=== PATIENT | female | born 1970 | race Caucasian/White ===

== ENCOUNTER 2020-04-08 06:49 | Outpatient (CLI) | payer OTHER, SELFPAY ==
--- NOTE | 2020-04-08 07:05 | MR_ITS ---
WS: [id number] MRI PITUITARY WITHOUT AND WITH GADOLINIUM ENHANCEMENT TECHNIQUE: Sagittal T1, T2 axial, T2 axial FLAIR, axial susceptibility weighted imaging, axial diffus ion weighted images, and coronal T2 images were obtained. Pre and post-T1 axial and post T1 coronal i mages. ADC and FSPGR images. High-resolution coronal T2 imaging. Post gadolinium imaging with attenti on to the pituitary. CLINICAL INFORMATION: PITUITARY MICROADENOMA COMPARISON: MRI September 07, 2018 FINDINGS: Again seen is the hypoenhancing lesion in the right aspect of the pituitary which is decreased in siz e today measuring 2.7 x 3.1 x 5.0 mm compared to 6.5 x 6.4 x 4.4 mm. Findings compatible with microad enoma. Normal optic chiasm and pituitary infundibulum. No evidence of suprasellar lesion. No evidence of restricted diffusion to suggest acute ischemia. Ventricular system and basal cisterns are patent. No suspicious intracranial signal abnormalities. Normal posterior fossa. Normal vascular flow voids at the skull base. No extra-axial fluid collections. Paranasal sinuses and mastoid air fernando ls are well aerated. Mild mucosal thickening in the ethmoid air cells. No hemosiderin on susceptibly weighted images. Temporal lobes and hippocampal formations are normal i n appearance. No abnormal intracranial enhancement. Dural venous sinuses are patent. MR/MR pituitary wo/w con* [id number] IMPRESSION: 1. Pituitary microadenoma right aspect of the pituitary has decreased in size since the prior examination today measuring 2.7 x 3.1 x 5.0 mm 2. No suprasellar lesion. Normal optic chiasm and pituitary infundibulum. 3. No other suspicious intracranial signal abnormalities. 4. No abnormal intracranial enhancement. 5. No other significant changes.
== END 2020-04-08 06:50 | disposition home or self-care (01) ==
LOC: RADSHAW 06:51
PROVIDERS: PCP Internal Medicine; Visit Provider Internal Medicine
DX: D35.2 Benign neoplasm of pituitary gland (principal)
CPT/HCPCS: 70553; A9579

== ENCOUNTER → 2020-04-30 11:34 | Outpatient (BNVA) | payer OTHER, SELFPAY | PROVIDERS: PCP Internal Medicine; Visit Provider Obstetrics & Gynecology | DX: D25.9 Leiomyoma of uterus, unspecified (principal) | CPT/HCPCS: 76830 ==

== ENCOUNTER → 2020-06-02 08:11 | Outpatient (BNVA) | payer OTHER, SELFPAY | PROVIDERS: PCP Internal Medicine; Visit Provider Specialist | DX: R55 Syncope and collapse (principal) | CPT/HCPCS: 95816 ==

== ENCOUNTER 2020-06-19 07:00 | Outpatient (CLI) | payer OTHER, SELFPAY ==
--- NOTE | 2020-06-19 07:05 | USCV_ITS ---
Kanika Lira Age: 49 Gender: F : 1970 Exam Date: 06/19/2020 07:26 Ordering Phys: Susie Schneider MD Technologist: David Rushing Exam Location: [facility] [place] Indication: NEAR SYNCOPE BP: 118 / 78 HR: 82 Rhythm: Sinus Technical Quality: Adequate MEASUREMENTS (Male / Female) Normal Values 2D ECHO LV Diastolic Diameter PLAX 4.0 cm 4.2 - 5.9 / 3.9 - 5.3 cm LV Systolic Diameter PLAX 2.8 cm IVS Diastolic Thickness 0.9 cm 0.6 - 1.0 / 0.6 - 0.9 cm IVS Systolic Thickness 1.0 cm LVPW Diastolic Thickness 0.8 cm 0.6 - 1.0 / 0.6 - 0.9 cm LVPW Systolic Thickness 1.1 cm LVOT Diameter 2.0 cm LV Ejection Fraction 2D Teich 57.3 % LV Ejection Fraction MOD 2C 62.7 % LV Ejection Fraction 2C AL 64.0 % LA Diameter 3.6 cm LA Width 4.6 cm LA Height 5.1 cm RA Width 3.6 cm RA Height 5.2 cm M-MODE LV Diastolic Diameter MM 4.8 cm 4.2 - 5.9 / 3.9 - 5.3 cm LV Systolic Diameter MM 3.4 cm LV Ejection Fraction MM Teich 56.9 % IVS Diastolic Thickness MM 1.1 cm 0.6 - 1.0 / 0.6 - 0.9 cm IVS Systolic Thickness MM 1.6 cm LVPW Diastolic Thickness MM 1.1 cm 0.6 - 1.0 / 0.6 - 0.9 cm LVPW Systolic Thickness MM 1.5 cm RV Diastolic Diameter MM 1.6 cm Aortic Annulus Diameter 3.5 cm LA Ao Ratio MM 1.3 MV E Point Septal Separation 1.1 cm DOPPLER AV Peak Velocity 127.0 cm/s LVOT Peak Velocity 112.0 cm/s AV Area Cont Eq vti 2.6 cm squared AV Area Cont Eq pk 2.8 cm squared MV Area PHT 3.5 cm squared Mitral E to A Ratio 0.8 MV E' Velocity 38.0 cm/s Mitral E to MV E' Ratio 9.8 Mitral E to LV E' Lateral Ratio 8.8 Mitral E to LV E' Septal Ratio 11.0 TR Peak Velocity 127.0 cm/s TR Peak Gradient 6.5 mmHg TV Peak E Velocity 85.0 cm/s Right Atrial Pressure 3.0 mmHg Pulmonary Artery Systolic Pressu 9.5 mmHg FINDINGS Left Ventricle Normal left ventricular size and systolic function, EF 66 %. No regional wall motion abnormalities. Right Ventricle The right ventricle is normal in size and function. Right Atrium The right atrium is normal in size. Left Atrium The left atrium is normal in size. Mitral Valve No gross abnormalities noted Aortic Valve No gross abnormalities noted Tricuspid Valve Not visualized well Pulmonic Valve Pulmonic valve not well visualized. Pericardium Normal pericardium without effusion. Aorta Normal ascending aorta dimension. CONCLUSIONS Normal left ventricular size and systolic function, EF 66 %. No regional wall motion abnormalities. Possibly normal chamber sizes There is no pericardial effusion. Compared to the previous study from 10/20/2018, there may not be a significant change Dr Joana Frances MD FACC (Electronically Signed) Final Date: 19 June 2020 17:11 S
== END 2020-06-19 07:01 | disposition home or self-care (01) ==
PROVIDERS: PCP Internal Medicine; Visit Provider Internal Medicine
DX: R55 Syncope and collapse (principal); D35.2 Benign neoplasm of pituitary gland
CPT/HCPCS: 93306

== ENCOUNTER → 2020-07-22 07:55 | Outpatient (BNVA) | payer OTHER, SELFPAY | PROVIDERS: PCP Internal Medicine; Visit Provider Specialist | DX: R55 Syncope and collapse (principal); F32.9 Major depressive disorder, single episode, unspecified | CPT/HCPCS: 99204 ==

== ENCOUNTER 2020-08-26 09:21 | Outpatient (CLI) | payer OTHER, SELFPAY ==
--- NOTE | 2020-08-26 09:24 | MM_ITS ---
WS: [id number] BILATERAL SCREENING DIGITAL MAMMOGRAM WITH CAD HISTORY: SCREENING COMPARISON: 07/05/2019, 11/30/2017 and 10/06/2016 Bilateral CC and MLO views submitted. Computer aided detection analyzed. Breast composition: There are scattered areas of fibroglandular density. No suspicious masses, microc alcifications or architectural distortion. MM/[place] [id number] IMPRESSION: BI-RADS: 1-Negative FOLLOW UP: 1 Year Follow-up
== END 2020-08-26 09:22 | disposition home or self-care (01) ==
LOC: RADSHAW 09:23
PROVIDERS: PCP Internal Medicine; Visit Provider Internal Medicine
DX: Z12.31 Encounter for screening mammogram for malignant neoplasm of breast (principal)
CPT/HCPCS: 77067

== ENCOUNTER 2020-12-25 07:48 | Outpatient (CLI) | payer OTHER, SELFPAY ==
--- NOTE | 2020-12-25 08:00 | MR_ITS ---
WS: [id number] MRI PITUITARY WITHOUT AND WITH GADOLINIUM ENHANCEMENT TECHNIQUE: Sagittal T1, T2 axial, T2 axial FLAIR, axial susceptibility weighted imaging, axial diffus ion weighted images, and coronal T2 images were obtained. Pre and post-T1 axial and post T1 coronal i mages. ADC and FSPGR images. High-resolution coronal T2 imaging. Post gadolinium imaging with attenti on to the pituitary. CLINICAL INFORMATION: PITUITARY MICROADENOMA COMPARISON: MRI September 07, 2018 and April 08, 2020 FINDINGS: Previously described hypoenhancing lesion in the right aspect of the pituitary has decrease d in size today and is difficult to visualize and measure. Motion degrades some images. Minimal resid ual signal abnormality in the right aspect of the pituitary. No evidence of progression. Normal optic chiasm and pituitary infundibulum. No evidence of suprasellar lesion. No evidence of restricted diffusion to suggest acute ischemia. Ventricular system and basal cisterns are patent. No suspicious intracranial signal abnormalities. Normal posterior fossa. Normal vascular flow voids at the skull base. No extra-axial fluid collections. No hemosiderin on susceptibly weighted images. Temporal lobes and hippocampal formations are normal i n appearance. No abnormal intracranial enhancement. Dural venous sinuses are patent. MR/MR pituitary wo/w con* [id number] IMPRESSION: 1. Previously described pituitary microadenoma appears decreased in size today and is difficult to visualize. Minimal residual microadenoma. Overall volume o f pituitary tissue has decreased. No evidence of progression. 2. No evidence of suprasellar lesion. Normal optic chiasm and pituitary infund ibulum. 3. No other suspicious intracranial signal abnormalities. 4. No abnormal gadolinium enhancement. 5. No other significant changes from previous.
[2020-12-25] MEDS: gadobenate dimeglumine 20 mL vial IV (09:13)
== END 2020-12-25 07:49 | disposition home or self-care (01) ==
PROVIDERS: PCP Internal Medicine; Visit Provider Internal Medicine
DX: D35.2 Benign neoplasm of pituitary gland (principal)
CPT/HCPCS: 70553; A9577

== ENCOUNTER → 2021-02-24 10:30 | Outpatient (BNVA) | payer OTHER, SELFPAY | PROVIDERS: PCP Internal Medicine; Visit Provider Obstetrics & Gynecology | DX: Z12.4 Encounter for screening for malignant neoplasm of cervix (principal); N95.1 Menopausal and female climacteric states | CPT/HCPCS: 88175 ==

== ENCOUNTER 2022-01-11 06:49 | Outpatient (CLI) | payer OTHER, SELFPAY ==
--- NOTE | 2022-01-11 07:04 | MR_ITS ---
WS: [id number] MRI BRAIN WITHOUT AND WITH CONTRAST, ATTENTION DIRECTED TO THE PITUITARY GLAND HISTORY: PITUITARY MICROADENOMA COMPARISON: 12/25/2020 and 04/08/2020. TECHNIQUE: Diffusion-weighted imaging, axial T2 sequence, and postcontrast images in 3 planes are per formed. High-resolution coronal and sagittal imaging performed through the pituitary region with and without intravenous gadolinium. Sagittal and axial T1 fat sat sequences post-MultiHance 20 cc IV. Diffusion-weighted images are normal. No evidence for acute infarct. No hemorrhage. Very minimal T2 a nd FLAIR signal hyperintensity in the subcortical white matter of the RIGHT frontal lobe is stable. N o hemorrhage. No midline shift. No prior infarct. No inferior displacement of the cerebellar tonsils. High-resolution imaging through the pituitary gland is essentially normal. The previously described p ituitary microadenoma is minimally suspected. Very slight prominence of the RIGHT side of the pituita ry gland. No hypoenhancing lesion confirmed with certainty. Similar findings were noted on the prior MRI from 12/25/2020. This may have been treated successfully with medication. The optic chiasm and the pituitary infundibulum are normal with no displacement. Normal enhancement throughout the brain. 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 No abnormality at the cerebellopontine angle. Normal enhancement. Normal flow voids . Dural venous sinuses are patent and normal. Very minimal mucoperiosteal thickening in the ethmoid air cells. Normal mastoid air cells. No calvari al abnormality. Orbits and globes are negative. MR/MR pituitary wo/w con* [id number] IMPRESSION: 1. Previously described pituitary microadenoma is very difficult to visualize as also described on 12/25/2020. No recurrence or increase in size. 2. No enhancing masses.
[2022-01-11] MEDS: gadobenate dimeglumine 20 mL vial IV (08:16)
== END 2022-01-11 06:50 | disposition home or self-care (01) ==
LOC: RAD 06:49
PROVIDERS: PCP Internal Medicine; Visit Provider Internal Medicine
DX: D49.7 Neoplasm of unspecified behavior of endocrine glands and other parts of nervous system (principal)
CPT/HCPCS: 70553

== ENCOUNTER 2022-02-03 07:08 | Outpatient (CLI) | payer OTHER, SELFPAY ==
--- NOTE | 2022-02-03 07:21 | MM_ITS ---
WS: [id number] VIEWS: MLO and CC views both breasts. 3D digital tomosynthesis is also included in this exam. Comparison made with prior exam of 09/05/2015, 10/06/2016, 11/30/2017, 07/07/2019, 08/26/2020. Findings: There was no sign of mass, architectural distortion or suspicious calcification in either breast. Sc attered fibroglandular densities MM/[place] [id number] Impression: BI-RADS: 2-Benign FOLLOW-UP: 1 Year Follow-up This mammogram was also analyzed by the Computer Aided Detection System R2 Imag e [employer].
== END 2022-02-03 07:09 | disposition home or self-care (01) ==
LOC: RAD 07:12
PROVIDERS: PCP Internal Medicine; Visit Provider Internal Medicine
DX: Z12.31 Encounter for screening mammogram for malignant neoplasm of breast (principal)
CPT/HCPCS: 77063; 77067

== ENCOUNTER 2023-05-04 08:01 | Outpatient (CLI) | payer BC, SELFPAY ==
--- NOTE | 2023-05-04 08:14 | MR_ITS ---
WS: [id number] MRI BRAIN WITHOUT AND WITH CONTRAST, ATTENTION DIRECTED TO THE PITUITARY GLAND HISTORY: PITUITARY MICROADENOMA COMPARISON: None available. TECHNIQUE: Diffusion-weighted imaging, axial T2 sequence, and postcontrast images in 3 planes are per formed. High-resolution coronal and sagittal imaging performed through the pituitary region with and without intravenous gadolinium. MultiHance 20 mL IV. Again noted is hypoenhancing lesion in the RIGHT aspect of the pituitary which is very difficult to v isualize. Mass measures approximately 4 x 4 x 3 mm. Continued to decrease in size. Pituitary microade noma was also very difficult to visualize on the most recent study. Over the several past examination s there has been no increase in size. No encasement of the cavernous carotid arteries. There is no ma ss effect upon the cavernous carotid artery. No displacement of the optic chiasm or the pituitary inf undibulum. Diffusion weighted imaging is normal. No significant small vessel ischemic disease and no atrophy. Ve ntricles are normal size. No hemorrhage or hemosiderin. No inferior displacement of the cerebellar to nsils. Normal flow voids. Posterior fossa is normal. No significant sinus disease. Mastoid air cells are negative. IMPRESSION: 1. RIGHT pituitary microadenoma is identified and very poorly visualized as on the most recent studie s. Residual microadenoma measures approximately 4 x 4 x 3 mm. No mass effect upon the carotid artery or the optic chiasm. No enlargement. 2. No significant atrophy or prior infarct.
[2023-05-04] MEDS: gadobenate dimeglumine 20 mL vial IV (11:40)
== END 2023-05-04 08:02 | disposition home or self-care (01) ==
PROVIDERS: PCP Internal Medicine; Visit Provider Internal Medicine
DX: D35.2 Benign neoplasm of pituitary gland (principal)
CPT/HCPCS: 70553; A9577

== ENCOUNTER 2023-06-22 07:34 | Outpatient (CLI) | payer BC, SELFPAY ==
--- NOTE | 2023-06-22 07:49 | MM_ITS ---
WS: [id number] BILATERAL SCREENING DIGITAL TOMOSYNTHESIS MAMMOGRAM WITH CAD HISTORY: SCREENING COMPARISON: 02/03/2022 and 08/26/2020 Bilateral CC and MLO views with tomosynthesis and synthetic mammography submitted. Computer aided det ection analyzed. Breast composition: There are scattered areas of fibroglandular density. No suspicious masses, microc alcifications or architectural distortion. Stable asymmetries in each breast. There is a very tiny as ymmetry in the posterior RIGHT breast towards the chest wall which has been present on multiple prior studies. IMPRESSION: MM/[place] [id number] BI-RADS: 2-Benign FOLLOW UP: 1 Year Follow-up
== END 2023-06-22 07:35 | disposition home or self-care (01) ==
LOC: RAD 07:34
PROVIDERS: PCP Internal Medicine; Visit Provider Internal Medicine
DX: Z12.31 Encounter for screening mammogram for malignant neoplasm of breast (principal)
CPT/HCPCS: 77063; 77067

== ENCOUNTER 2024-03-05 12:25 | Outpatient (CLI) | payer OTHER, SELFPAY ==
--- NOTE | 2024-03-05 12:39 | XR_ITS ---
WS: [id number] Cervical spine, 7 views including both obliques and lateral views in flexion, extension and neutral p osition, 03/05/2024 Clinical Data: CERVICALGIA Comparison: None. Findings: No compression fractures are seen. The disc heights are normal. There is no prevertebral so ft tissue swelling. The odontoid is unremarkable. The oblique images show no neural foraminal encroac hment. On flexion and extension there is no limitation of motion or subluxation. The soft tissues of the neck and the lung apices are normal. XR/XR cervical spine min 6V [id number] Impression: 1. Negative cervical spine. 2. Negative oblique images. 3. Negative for limitation of motion or subluxation on flexion or extension.
--- NOTE | 2024-03-05 12:39 | XR_ITS ---
WS: [id number] Left shoulder, 3 views, 03/05/2024 Clinical Data: PAIN IN L SHOULDER Comparison: None. Findings: No fractures or dislocations are seen. There is a large calcification overlying the greater tuberosit y. The AC joint is normal. The adjacent left clavicle, left scapula and ribs are normal. The soft tis sues are unremarkable. XR/XR shoulder LT min 2V* [id number] Impression: Probable left shoulder calcific bursitis and/or tendinitis.
== END 2024-03-05 12:26 | disposition home or self-care (01) ==
PROVIDERS: PCP Internal Medicine; Visit Provider Internal Medicine
DX: M54.2 Cervicalgia (principal); M25.512 Pain in left shoulder
CPT/HCPCS: 72052; 73030

== ENCOUNTER 2024-03-19 11:55 | Outpatient (RCR) | payer OTHER, SELFPAY | END 2024-03-28 23:59 | disposition home or self-care (01) | LOC: SPT 11:55 | PROVIDERS: PCP Internal Medicine; Visit Provider Internal Medicine | DX: M54.2 Cervicalgia (principal) | CPT/HCPCS: 97161 ==

== ENCOUNTER 2025-02-15 07:47 | Outpatient (CLI) | payer OTHER, SELFPAY ==
--- NOTE | 2025-02-15 08:00 | US_ITS ---
WS: [id number] RIGHT UPPER QUADRANT ULTRASOUND HISTORY: EPIGASTRIC ABDOMINAL PAIN COMPARISON: None available. Liver: 16.7 cm in length. Normal size liver. Coarse echotexture and hepatic steatosis. The entire liver is poorly visualized due to body habitus. No intrahepatic duct dilatation. Portal Vein: Normal hepatopetal flow with monophasic waveform. Gallbladder: Normally distended gallbladder with no stones or wall thickening. CBD: 0.3 cm Pancreas: Not visualized. Right kidney: 10.0 cm in length. Normal size and echogenicity. No hydronephrosis or mass. Aorta and IVC: Unremarkable abdominal aorta and IVC. No ascites. US/US abdomen limited [id number] IMPRESSION: 1. Normal gallbladder. 2. Mild hepatic steatosis. No intrahepatic duct dilatation.
== END 2025-02-15 07:48 | disposition home or self-care (01) ==
LOC: RAD 07:50
PROVIDERS: PCP Internal Medicine; Visit Provider Internal Medicine
DX: K76.0 Fatty (change of) liver, not elsewhere classified (principal); R10.13 Epigastric pain
CPT/HCPCS: 76705

== ENCOUNTER 2025-03-13 07:57 | Outpatient (CLI) | payer OTHER, SELFPAY ==
--- NOTE | 2025-03-13 08:15 | MM_ITS ---
WS: [id number] BILATERAL SCREENING DIGITAL TOMOSYNTHESIS MAMMOGRAM WITH CAD HISTORY: SCREENING COMPARISON: 06/22/2023, 02/03/2022 Bilateral CC and MLO views with tomosynthesis and synthetic mammography submitted. Computer aided detection analyzed. Breast composition: There are scattered areas of fibroglandular density. No suspicious masses, microcalcifications or architectural distortion. There are a few benign scattered calcifications. MM/MM scr BI tomosynthesis [id number] IMPRESSION: BI-RADS: 2 - Benign. FOLLOW UP: 1 Year Follow-up
== END 2025-03-13 07:58 | disposition home or self-care (01) ==
LOC: RAD 07:59
PROVIDERS: PCP Internal Medicine; Visit Provider Internal Medicine
DX: Z12.31 Encounter for screening mammogram for malignant neoplasm of breast (principal); R92.323 Mammographic fibroglandular density, bilateral breasts; R92.1 Mammographic calcification found on diagnostic imaging of breast
CPT/HCPCS: 77063; 77067

== ENCOUNTER → 2025-04-22 16:40 | Outpatient (BNVA) | payer OTHER, SELFPAY | PROVIDERS: PCP Internal Medicine; Visit Provider Nurse Practitioner Women's Health | DX: Z12.4 Encounter for screening for malignant neoplasm of cervix (principal) | CPT/HCPCS: 87624 ==

== ENCOUNTER 2025-07-19 13:25 | Outpatient (CLI) | payer OTHER, SELFPAY ==
--- NOTE | 2025-07-19 13:35 | MRR_ITS ---
PROCEDURE INFORMATION: Exam: MR Head Without and With Contrast Exam date and time: 07/19/2025 2:12 PM Age: 54 years old Clinical indication: Condition or disease; Other: Pituitary microadenoma TECHNIQUE: Imaging protocol: Magnetic resonance imaging of the head without and with contrast. Contrast material: MULTIHANCE; Contrast volume: 20 ml; Contrast route: INTRAVENOUS (IV); COMPARISON: MR pituitary wo/w con* [id number] 05/04/2023 9:07 AM FINDINGS: Brain: Mineralization of bilateral basal ganglia, age-related. No acute infarct. No intracranial bleed. Cerebral ventricles: Normal. No ventriculomegaly. Pituitary gland and sella: Similar size and appearance of the pituitary micro adenoma in the right aspect of the pituitary gland, measuring 4 mm. Bones: Unremarkable. Paranasal sinuses: Normal as visualized. No acute sinusitis. Mastoid air cells: Normal as visualized. No mastoid effusion. Orbital cavities: Unremarkable. Soft tissues: Unremarkable. MR/MR pituitary wo/w con* [id number] IMPRESSION: Similar pituitary micro adenoma measuring 4 mm. No mass effect.
== END 2025-07-19 13:26 | disposition home or self-care (01) ==
LOC: RAD 13:26
PROVIDERS: PCP Internal Medicine; Visit Provider Internal Medicine
DX: D35.2 Benign neoplasm of pituitary gland (principal); G23.8 Other specified degenerative diseases of basal ganglia; R93.0 Abnormal findings on diagnostic imaging of skull and head, not elsewhere classified
CPT/HCPCS: 70553